=== PATIENT | female | born 1950 | race Caucasian/White ===

== ENCOUNTER → 2017-02-22 | Outpatient (CLI) | payer MEDICARE | END | disposition home or self-care (01) | LOC: CFH 12:20 | PROVIDERS: ATTEND Specialist | DX: Z12.31 Encounter for screening mammogram for malignant neoplasm of breast (principal) | CPT/HCPCS: 77063; G0202 ==

== ENCOUNTER 2020-10-04 10:15 | Emergency (ER) | payer MEDICARE ==
--- NOTE | 2020-10-04 10:17 | NUR ---
KENDALL RN: PT IN BATHROOM
--- NOTE | 2020-10-04 10:42 | NUR ---
pt presents to ed with c/o SOB x 2 weeks and CP since this morning. pt breathing shallow/rapid, other vss, nadn. halie Jade at bedside for eval/assessment.
[2020-10-04 11:01] LABS: BASOPHILS % (AUTO) 1 % (0-1); EOSINOPHILS % (AUTO) 1 % (1-7); LYMPHOCYTES % (AUTO) 27 % (22-44); MEAN CORPUSCULAR HEMOGLOBIN 32.1 pg (27.0-34.8); MEAN CORPUSCULAR HGB CONC 33.9 g/dL (32.4-35.8); MEAN PLATELET VOLUME 7.3 fL (7.4-10.4); MONOCYTES % (AUTO) 7 % (2-9); NEUTROPHILS % (AUTO) 65 % (42-75); PLATELET COUNT 225 x10^3/uL (130-400); RED BLOOD COUNT 4.47 x10^6/uL (3.82-5.3); RED CELL DISTRIBUTION WIDTH 12.7 % (9.6-15.2)
[2020-10-04 11:18] LABS: ALANINE AMINOTRANSFERASE 29 U/L (12-78); ALBUMIN 3.8 g/dL (3.4-5.0); ANION GAP 3 mmol/L (5-15); CALCIUM 10.2 mg/dL (8.5-10.1); CHLORIDE 108 mmol/L (98-107); CREATININE 0.84 mg/dL (0.55-1.02)
[2020-10-04 11:22] LABS: ALKALINE PHOSPHATASE 51 U/L (45-117); BILIRUBIN,TOTAL 0.9 mg/dL (0.2-1.0); TOTAL PROTEIN 7.1 g/dL (6.4-8.2); TROPONIN I < 0.015 ng/mL (0.000-0.045)
--- NOTE | 2020-10-04 11:25 | NUR ---
PT AMBULATORY TO BATHROOM WITH STEADY GAIT. PT A&O, RESPS EVEN AND SLIGHTLY LABORED, VSS, NADN.
[2020-10-04 12:32] VITALS: BP 116/50
--- NOTE | 2020-10-04 12:32 | NUR ---
Pt back resting in bed, call light in reach
--- NOTE | 2020-10-04 13:14 | NUR ---
discharge instructions reviewed, pt verbalized understanding. ambulatory to discharge with steady gait.
== END 2020-10-04 13:16 | disposition home or self-care (01) ==
LOC: ED 11:18
DX: R06.00 Dyspnea, unspecified (principal); R07.89 Other chest pain
CPT/HCPCS: 36415; 71045; 80053; 83880; 84484; 85025; 85379; 93005; 99285

== ENCOUNTER → 2020-10-24 | Outpatient (CLI) | payer MEDICARE | END | disposition home or self-care (01) | LOC: RAD 09:59 | PROVIDERS: ATTEND Family Medicine | DX: R91.8 Other nonspecific abnormal finding of lung field (principal); M51.34 Other intervertebral disc degeneration, thoracic region; J98.4 Other disorders of lung | CPT/HCPCS: 71250 ==

== ENCOUNTER 2020-11-11 13:44 | Outpatient (CLI) | payer MEDICARE ==
[2020-11-11 14:13] LABS: ANION GAP 4 mmol/L (5-15); CALCIUM 9.4 mg/dL (8.5-10.1); CHLORIDE 107 mmol/L (98-107); CREATININE 0.72 mg/dL (0.55-1.02)
== END 2020-11-11 23:59 | disposition home or self-care (01) ==
LOC: LAB 13:44
PROVIDERS: ATTEND Family Medicine
DX: E83.52 Hypercalcemia (principal)
CPT/HCPCS: 36415; 80048; 82330; 83970

== ENCOUNTER 2020-12-06 08:57 | Emergency (ER) | payer MEDICARE ==
[~2020-12-06] VITALS: Ht 162.6 cm; Wt 48.1 kg
--- NOTE | 2020-12-06 09:58 | NUR ---
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
[2020-12-06 10:29] LABS: BASOPHILS % (AUTO) 0 % (0-1); EOSINOPHILS % (AUTO) 1 % (1-7); LYMPHOCYTES % (AUTO) 27 % (22-44); MEAN CORPUSCULAR HEMOGLOBIN 32.1 pg (27.0-34.8); MEAN CORPUSCULAR HGB CONC 33.7 g/dL (32.4-35.8); MEAN PLATELET VOLUME 7.6 fL (7.4-10.4); MONOCYTES % (AUTO) 8 % (2-9); NEUTROPHILS % (AUTO) 63 % (42-75); PLATELET COUNT 234 x10^3/uL (130-400); RED BLOOD COUNT 4.42 x10^6/uL (3.82-5.3); RED CELL DISTRIBUTION WIDTH 12.5 % (9.6-15.2)
[2020-12-06 10:37] LABS: ALANINE AMINOTRANSFERASE 25 U/L (12-78); ALBUMIN 3.9 g/dL (3.4-5.0); ANION GAP 6 mmol/L (5-15); CALCIUM 9.1 mg/dL (8.5-10.1); CHLORIDE 106 mmol/L (98-107); CREATININE 0.63 mg/dL (0.55-1.02)
[2020-12-06 10:40] LABS: ALKALINE PHOSPHATASE 55 U/L (45-117); BILIRUBIN,TOTAL 0.7 mg/dL (0.2-1.0); TOTAL PROTEIN 7.3 g/dL (6.4-8.2)
--- NOTE | 2020-12-06 11:46 | NUR ---
ASSUMED CARE OF PT, PT OFF UNIT TO CT.
[2020-12-06 12:43] VITALS: BP 117/51
--- NOTE | 2020-12-06 13:30 | NUR ---
PT UPSET ABOUT WAITING FOR DISCHARGE, PT STATES SHE WILL JUST LEAVE AND OBTAIN MEDICAL RECORDS.
== END 2020-12-06 13:40 | disposition left against medical advice (07) ==
LOC: ED 09:34
DX: G89.29 Other chronic pain (principal); R10.13 Epigastric pain; R10.33 Periumbilical pain; R06.02 Shortness of breath
CPT/HCPCS: 36415; 71045; 74176; 76700; 80053; 83690; 85025; 93005; 99285